=== PATIENT | female | born 1990 | race Caucasian/White ===

== ENCOUNTER 2016-09-21 18:42 | Emergency (ER) | payer OTHER | END 2016-09-21 22:45 | disposition home or self-care (01) | LOC: ER 18:42 | DX: S50.01XA Contusion of right elbow, initial encounter (principal); S50.11XA Contusion of right forearm, initial encounter; S60.211A Contusion of right wrist, initial encounter; W19.XXXA Unspecified fall, initial encounter; Y92.019 Unspecified place in single-family (private) house as the place of occurrence of the external cause; F17.210 Nicotine dependence, cigarettes, uncomplicated; Z88.1 Allergy status to other antibiotic agents; Z88.7 Allergy status to serum and vaccine; Z79.899 Other long term (current) drug therapy | CPT/HCPCS: 73030; 73080; 73110; 99070; 99283 ==

== ENCOUNTER 2016-10-03 18:31 | Emergency (ER) | payer OTHER | END 2016-10-03 20:05 | disposition home or self-care (01) | LOC: ER 18:31 | DX: S00.551A Superficial foreign body of lip, initial encounter (principal); W45.8XXA Other foreign body or object entering through skin, initial encounter; F17.210 Nicotine dependence, cigarettes, uncomplicated | CPT/HCPCS: 10120; 99070; 99282-25 ==

== ENCOUNTER 2016-10-12 17:37 | Emergency (ER) | payer OTHER | END 2016-10-12 19:22 | disposition left against medical advice (07) | LOC: ER 17:37 | DX: Z53.21 Procedure and treatment not carried out due to patient leaving prior to being seen by health care provider (principal) ==

== ENCOUNTER 2016-10-19 19:01 | Emergency (ER) | payer OTHER | END 2016-10-19 22:09 | disposition left against medical advice (07) | LOC: ER 19:01 | DX: Z53.21 Procedure and treatment not carried out due to patient leaving prior to being seen by health care provider (principal) | CPT/HCPCS: 99211 ==

== ENCOUNTER 2016-10-22 17:34 | Emergency (ER) | payer OTHER | END 2016-10-22 19:10 | disposition home or self-care (01) | LOC: ER 17:34 | DX: S40.012A Contusion of left shoulder, initial encounter (principal); S20.212A Contusion of left front wall of thorax, initial encounter; V18.2XXA Unspecified pedal cyclist injured in noncollision transport accident in nontraffic accident, initial encounter; Z86.19 Personal history of other infectious and parasitic diseases; F41.9 Anxiety disorder, unspecified; Z86.14 Personal history of Methicillin resistant Staphylococcus aureus infection; Z88.5 Allergy status to narcotic agent; Z88.1 Allergy status to other antibiotic agents; Z88.7 Allergy status to serum and vaccine; Z79.899 Other long term (current) drug therapy; Z79.1 Long term (current) use of non-steroidal anti-inflammatories (NSAID) | CPT/HCPCS: 73010; 99283 ==

== ENCOUNTER 2016-11-03 15:58 | Emergency (ER) | payer OTHER | END 2016-11-03 17:05 | disposition home or self-care (01) | LOC: ER 15:58 | DX: M79.642 Pain in left hand (principal); W20.8XXA Other cause of strike by thrown, projected or falling object, initial encounter; W27.8XXA Contact with other nonpowered hand tool, initial encounter; Y92.019 Unspecified place in single-family (private) house as the place of occurrence of the external cause; F17.200 Nicotine dependence, unspecified, uncomplicated; Z88.5 Allergy status to narcotic agent; Z88.1 Allergy status to other antibiotic agents; Z88.7 Allergy status to serum and vaccine | CPT/HCPCS: 73130; 99283 ==

== ENCOUNTER 2016-11-23 18:02 | Emergency (ER) | payer OTHER | END 2016-11-23 21:51 | disposition home or self-care (01) | LOC: ER 18:02 | DX: S70.02XA Contusion of left hip, initial encounter (principal); W19.XXXA Unspecified fall, initial encounter; Y92.019 Unspecified place in single-family (private) house as the place of occurrence of the external cause; Z98.51 Tubal ligation status; F17.210 Nicotine dependence, cigarettes, uncomplicated; Z88.5 Allergy status to narcotic agent; Z88.1 Allergy status to other antibiotic agents; Z88.7 Allergy status to serum and vaccine; Z79.899 Other long term (current) drug therapy; Z79.1 Long term (current) use of non-steroidal anti-inflammatories (NSAID) | CPT/HCPCS: 73502; 99283 ==

== ENCOUNTER 2016-11-30 18:56 | Emergency (ER) | payer OTHER ==
[2016-11-30 23:02] LABS: EOS % 0.9 % (0.7-5.8); GRAN # 2.2 10_X3_uL (1.6-6.1); GRAN % 67.9 % (34.0-71.1); HEMATOCRIT 34.3 % (34-45); LYMPH # 0.7 10_X3_uL (1.2-3.7); MEAN CORPUSCULAR HEMOGLOBIN 26.3 pg (27.0-33.0); MEAN CORPUSCULAR HGB CONC 32.1 g/dL (32.0-36.0); MEAN CORPUSCULAR VOLUME 82.1 fL (79-95); MONO # 0.3 10_X3_uL (0.2-0.9); MONO % 8.2 % (4.7-12.5); PLATELET COUNT 258 x10_3/uL (182-369); RED BLOOD COUNT 4.18 x10_6/uL (3.9-5.2); RED CELL DISTRIBUTION WIDTH 15.6 % (11.7-14.4); WHITE BLOOD COUNT 3.2 x10_3/uL (4.0-10.0)
[2016-11-30 23:12] LABS: BLOOD UREA NITROGEN 6 mg/dL (7-18); CALCIUM 8.3 mg/dL (8.7-10.7); CARBON DIOXIDE 27 mmol/L (21-32); CREATININE 0.6 mg/dL (0.6-1.3); GLUCOSE,RANDOM 83 mg/dL (70-99); POTASSIUM 3.3 mmol/L (3.5-5.1); SODIUM 135 mmol/L (136-145)
== END 2016-12-01 04:03 | disposition home or self-care (01) ==
LOC: ER 18:56
PROVIDERS: Emergency Medicine
DX: L55.9 Sunburn, unspecified (principal); R11.10 Vomiting, unspecified; R51 Headache; Z98.51 Tubal ligation status; Z79.899 Other long term (current) drug therapy; Z88.1 Allergy status to other antibiotic agents; Z88.5 Allergy status to narcotic agent
CPT/HCPCS: 36415; 80048; 85025; 96361; 96374; 96375; 99070; 99282-25

== ENCOUNTER 2016-12-23 20:54 | Emergency (ER) | payer OTHER | END 2016-12-23 21:20 | disposition left against medical advice (07) | LOC: ER 20:54 | DX: Z53.21 Procedure and treatment not carried out due to patient leaving prior to being seen by health care provider (principal) | CPT/HCPCS: 99070; 99211 ==

== ENCOUNTER 2017-03-11 14:14 | Emergency (ER) | payer OTHER | END 2017-03-11 15:05 | disposition home or self-care (01) | LOC: ER 14:14 | DX: S90.32XA Contusion of left foot, initial encounter (principal); S90.112A Contusion of left great toe without damage to nail, initial encounter; W23.0XXA Caught, crushed, jammed, or pinched between moving objects, initial encounter; Z88.7 Allergy status to serum and vaccine; Z88.5 Allergy status to narcotic agent; Z88.1 Allergy status to other antibiotic agents; Z79.899 Other long term (current) drug therapy | CPT/HCPCS: 73630; 99283 ==